=== PATIENT | male | born 1955 | race Caucasian/White ===

== ENCOUNTER → 2016-07-13 | Outpatient (CLI) | payer OTHER ==
[2016-03-10 08:00] VITALS: BP 129/85
[~2016-07-13] MED LIST: ACET500T33 PO; ASPI-482 PO; ASPI81TA44 PO; BYSTOLIC10 MG PO; CHOL10003 PO; GLUC1TAB33 PO; HYDR50TA6 PO; LISI30TA4 PO; LISI40TA PO; MULT-460 PO; OMEP20TA PO; SIMV20TA3 PO; TADA5TAB PO; TEST30SO TD; TEST75GE2 TD
== END | disposition home or self-care (01) ==
LOC: LAB 14:22
PROVIDERS: ATTEND Internal Medicine
DX: R73.03 Prediabetes (principal)
CPT/HCPCS: 36415; 82947; 83036

== ENCOUNTER → 2016-10-28 | Outpatient (CLI) | payer OTHER ==
[2016-03-10 08:00] VITALS: BP 129/85
[~2016-10-28] MED LIST changes: -OMEP20TA PO; +OMEP20TA8 PO
[2016-10-28 12:51] LABS: CHOLESTEROL/HDL RATIO 2.7
[2016-10-28 19:13] LABS: TESTOSTERONE TOTAL 280 ng/dL (348-1197)
== END | disposition home or self-care (01) ==
LOC: LAB 12:02
PROVIDERS: ATTEND Internal Medicine
DX: R89.9 Unspecified abnormal finding in specimens from other organs, systems and tissues (principal)
CPT/HCPCS: 36415; 80061; 84403

== ENCOUNTER → 2017-03-04 | Outpatient (CLI) | payer OTHER ==
[2016-03-10 08:00] VITALS: BP 129/85
[2017-03-04 10:20] LABS: HEMATOCRIT 46.7 % (39.0-53.0)
[2017-03-04 11:24] LABS: ALBUMIN 4.2 g/dL (3.4-5.0); ALBUMIN/GLOBULIN RATIO 1.1 (1.0-1.7); CALCIUM 9.9 mg/dL (8.5-10.1); CHOLESTEROL/HDL RATIO 3.2; CREATININE 0.7 mg/dL (0.7-1.3); GFR 114.6; POTASSIUM 4.5 mmol/L (3.5-5.1); TOTAL BILIRUBIN 0.9 mg/dL (0.2-1.0); TOTAL PROTEIN 8.2 g/dL (6.4-8.2)
[2017-03-04 18:14] LABS: TESTOSTERONE TOTAL 286 ng/dL (264-916)
== END | disposition home or self-care (01) ==
LOC: LAB 09:58
PROVIDERS: ATTEND Internal Medicine
DX: Z12.5 Encounter for screening for malignant neoplasm of prostate (principal); Z00.01 Encounter for general adult medical examination with abnormal findings; I10 Essential (primary) hypertension; E29.1 Testicular hypofunction; E78.5 Hyperlipidemia, unspecified
CPT/HCPCS: 36415; 80053; 80061; 84403; 85014; 85018; G0103

== ENCOUNTER → 2017-10-18 | Outpatient (CLI) | payer OTHER ==
[2017-10-18 13:07] LABS: ADD MAN DIFF? NO
[2017-10-18 13:27] LABS: BASO % 1 % (0-3); EOS # 0.1 x10^3/uL (0.0-0.7); EOS % 1 % (0-3); HEMATOCRIT 46.7 % (39.0-53.0); LYMPH # 1.7 x10^3/uL (1.0-4.8); LYMPH % 19 % (24-48); MEAN CORPUSCULAR HEMOGLOBIN 32 pg (25-35); MEAN CORPUSCULAR HGB CONC 34 g/dL (31-37); MEAN CORPUSCULAR VOLUME 94 fL (79-100); MONO % 11 % (0-9); NEUT # 6.2 x10^3uL (1.8-7.7); NEUT % 68 % (31-73); PLATELET COUNT 209 x10^3/uL (140-400); RED BLOOD COUNT 4.96 x10^6/uL (4.30-5.70); RED CELL DISTRIBUTION WIDTH 13.2 % (11.5-14.5)
[2017-10-18 14:50] LABS: SEDIMENTATION RATE 1 (0-15)
== END | disposition home or self-care (01) ==
LOC: MRI 12:44
DX: G44.89 Other headache syndrome (principal)
CPT/HCPCS: 36415; 70551; 85025; 85651

== ENCOUNTER → 2017-11-01 | Outpatient (CLI) | payer OTHER ==
[2017-11-01 11:38] LABS: ALBUMIN 4.4 g/dL (3.4-5.0); ALBUMIN/GLOBULIN RATIO 1.1 (1.0-1.7); ALK PHOS 58 U/L (46-116); ALT (SGPT) 51 U/L (16-63); ANION GAP 6 (6-14); AST (SGOT) 28 U/L (15-37); BLOOD UREA NITROGEN 22 mg/dL (8-26); BUN/CREATININE RATIO 24 (6-20); CALCIUM 9.2 mg/dL (8.5-10.1); CARBON DIOXIDE 30 mmol/L (21-32); CHLORIDE 102 mmol/L (98-107); CREATININE 0.9 mg/dL (0.7-1.3); GFR 85.8; GLUCOSE 107 mg/dL (70-99); POTASSIUM 4.8 mmol/L (3.5-5.1); SODIUM 138 mmol/L (136-145); TOTAL BILIRUBIN 0.5 mg/dL (0.2-1.0); TOTAL PROTEIN 8.4 g/dL (6.4-8.2)
[2017-11-01 12:23] LABS: SEDIMENTATION RATE 2 (0-15)
== END | disposition home or self-care (01) ==
LOC: LAB 10:57
DX: G44.001 Cluster headache syndrome, unspecified, intractable (principal); I10 Essential (primary) hypertension; E78.5 Hyperlipidemia, unspecified; E78.00 Pure hypercholesterolemia, unspecified
CPT/HCPCS: 36415; 80053; 85651; 86141

== ENCOUNTER → 2017-11-02 | Outpatient (CLI) | payer OTHER ==
[2017-11-02] MEDS: GADOBUTROL 10 MMOL/10 ML VIAL IV (12:31)
== END | disposition home or self-care (01) ==
LOC: KCIC MRI 11:27
DX: H57.12 Ocular pain, left eye (principal); I10 Essential (primary) hypertension; E78.5 Hyperlipidemia, unspecified; E78.00 Pure hypercholesterolemia, unspecified
CPT/HCPCS: 70543; 70544; 70552; A9585

== ENCOUNTER → 2017-11-02 | Outpatient (CLI) | payer OTHER | END | disposition home or self-care (01) | LOC: EKG 10:33 | DX: G44.009 Cluster headache syndrome, unspecified, not intractable (principal) | CPT/HCPCS: 93005 ==

== ENCOUNTER → 2018-02-06 | Outpatient (CLI) | payer OTHER ==
[2017-12-18 10:31] VITALS: BP 150/90
[~2018-02-06] MED LIST changes: -ASPI81TA44 PO; +ASPI81TA59 PO; +BENZ-8 PO; +CARB200T PO; +CEFD300C PO; +CYCL10TA2 PO; +DIAZ2TAB3 PO; +HYDR-2758 PO; +LEVO500T59 PO; +LISI-130 PO; -LISI40TA PO; +METO-269 PO; +Pantoprazole PO; +SPIR25TA5 PO
[2018-02-06 12:35] LABS: BILIRUBIN,URINE NEGATIVE (NEG); CLARITY,URINE CLEAR; COLOR,URINE YELLOW; NITRITE,URINE NEGATIVE (NEG); PH,URINE 5.5; PROTEIN,URINE NEGATIVE (NEG-TRACE); UROBILINOGEN,URINE 0.2 mg/dL (0.2 mg/dL)
[2018-02-06 12:40] LABS: BASO % 1 % (0-3); EOS # 0.1 x10^3/uL (0.0-0.7); EOS % 1 % (0-3); HEMATOCRIT 48.2 % (39.0-53.0); HEMOGLOBIN 16.7 g/dL (13.0-17.5); LYMPH # 1.1 x10^3/uL (1.0-4.8); LYMPH % 15 % (24-48); MEAN CORPUSCULAR HEMOGLOBIN 33 pg (25-35); MEAN CORPUSCULAR HGB CONC 35 g/dL (31-37); MEAN CORPUSCULAR VOLUME 95 fL (79-100); MONO # 0.8 x10^3/uL (0.0-1.1); MONO % 10 % (0-9); NEUT # 5.4 x10^3uL (1.8-7.7); NEUT % 73 % (31-73); PLATELET COUNT 201 x10^3/uL (140-400); RED BLOOD COUNT 5.08 x10^6/uL (4.30-5.70); RED CELL DISTRIBUTION WIDTH 13.6 % (11.5-14.5); WHITE BLOOD COUNT 7.4 x10^3/uL (4.0-11.0)
[2018-02-06 12:51] LABS: BACTERIA,URINE FEW /HPF (0-FEW); RBC,URINE RARE /HPF (0-2); WBC,URINE RARE /HPF (0-4)
[2018-02-06 13:01] LABS: ALBUMIN 4.4 g/dL (3.4-5.0); ALBUMIN/GLOBULIN RATIO 1.1 (1.0-1.7); CALCIUM 9.6 mg/dL (8.5-10.1); CREATININE 0.9 mg/dL (0.7-1.3); GFR 85.5; POTASSIUM 4.2 mmol/L (3.5-5.1); TOTAL BILIRUBIN 0.5 mg/dL (0.2-1.0); TOTAL PROTEIN 8.5 g/dL (6.4-8.2)
[2018-02-06 13:33] LABS: CHOLESTEROL/HDL RATIO 3.2
== END | disposition home or self-care (01) ==
LOC: LAB 12:17
PROVIDERS: ATTEND Family Medicine
DX: Z12.5 Encounter for screening for malignant neoplasm of prostate (principal); Z12.11 Encounter for screening for malignant neoplasm of colon; I10 Essential (primary) hypertension; E29.1 Testicular hypofunction
CPT/HCPCS: 80053; 80061; 81001; 85025; G0103

== ENCOUNTER → 2018-03-08 | Day surgery (SDC) | payer OTHER ==
[~2018-03-08] MED LIST changes: +BALANCED SALT IRRIG OPHTH SOLN 15 ML BOTTLE. ONE; +BECL10.62 IH; +CHLO25TA PO; +CHONDROIT-SOD-HYALURONATE KIT. ONE; +CHONDROITIN-SOD-HYALURONATE 0.5 ML DISP.SYRIN. ONE; +CIPROFLOXACIN 0.3% OPHTH SOLUTION 5ML BOTTLE. OS ONE; +FLUT9.9S NS; +HYDROmorphone 2 MG/ML VIAL IV PRN; +IV RINGERS,LACTATED 1000ML 1,000 ML IV SCH; +LIDOCAINE 1% PF 2 ML VIAL. ID PRN; +LIDOCAINE 1% PF 2 ML VIAL. ONE; +LIDOCAINE 2% JELLY 6ML IN APPLICATOR. MM SCH; +LIDOCAINE 2% JELLY 6ML IN APPLICATOR. ONE; +MIDAZOLAM HCL/PF 2 MG/2 ML VIAL. ONE; +MORPHINE SULFATE 2 MG/ML VIAL. IV PRN; +NEO/POLYMYX/DEXAMETH OPHTH OINTMENT 3.5GM TUBE. ONE; +OMEP20CA9 PO; +PROCHLORPERAZINE 10 MG/2 ML VIAL. IV PRN; +fentaNYL PF VIAL 100 MCG/2 ML VIAL IV PRN
[2018-03-08] MEDS: PROPARACAINE 0.5% OPHTH SOLUTION 15ML BOTTLE. OS ONE ×2 (10:46→12:17)
[2018-03-08] MEDS: PHENYLEPHRINE 10% OPHTH SOLUTION 5ML BOTTLE. OS SCH ×3 (10:47→10:59)
[2018-03-08] MEDS: CYCLOPENTOLATE 1% OPTH SOLUTION 2ML BOTTLE. OS SCH ×3 (10:48→10:59)
--- NOTE | 2018-03-08 12:53 | OP ---
DATE OF SURGERY: 03/08/2018 PREOPERATIVE DIAGNOSIS: Cataract of the left eye, status post pars plana vitrectomy earlier in the year. SURGEON: Kimberlyn Cortez MD ANESTHESIA: Topical with monitored anesthesia care. DESCRIPTION OF PROCEDURE: The left eye was prepped with Betadine in the usual sterile fashion and draped. A paracentesis was performed followed by instillation of preservative free lidocaine and phenylephrine admixed with balanced salt solution. Viscoelastic was injected in the anterior chamber and a temporal clear corneal incision was made. A capsulorrhexis was performed followed by hydrodissection and prolapse of the nucleus to the pupillary plane. Viscoelastic was injected both anterior and posterior to the nucleus and it was evacuated with the phacoemulsification handpiece. The I and A handpiece was used to remove the remainder of the cortex. Viscoelastic was injected in the anterior chamber and an [place] model [id number] with a power of 17.5 diopters was placed into the capsular bag. Balanced salt solution was used to hydrate the corneal wounds and the viscoelastic evacuated with the I and A handpiece. Once no leak was noted, Maxitrol was placed on the eye and the eye shielded and the patient was sent to the recovery room uneventfully. KIMBERLYN CORTEZ MD DR: SARIKA/abdoulaye JOB#: [id number] / [id number]
[2018-03-08 12:56] VITALS: BP 118/72
== END | disposition home or self-care (01) ==
LOC: SURG 10:11
PROVIDERS: ATTEND Ophthalmology
DX: H26.8 Other specified cataract (principal); I10 Essential (primary) hypertension; E78.5 Hyperlipidemia, unspecified; Z90.49 Acquired absence of other specified parts of digestive tract; Z98.890 Other specified postprocedural states; Z72.89 Other problems related to lifestyle; Z79.899 Other long term (current) drug therapy; Z96.652 Presence of left artificial knee joint; Z88.8 Allergy status to other drugs, medicaments and biological substances
CPT/HCPCS: 66984; C1780; J0171; J0690; J1580; J2250

== ENCOUNTER → 2018-06-02 | Outpatient (CLI) | payer OTHER ==
[2018-03-08 12:56] VITALS: BP 118/72
[~2018-06-02] MED LIST changes: -BALANCED SALT IRRIG OPHTH SOLN 15 ML BOTTLE. ONE; -CHLO25TA PO; +CHLO25TA10 PO; -CHONDROIT-SOD-HYALURONATE KIT. ONE; -CHONDROITIN-SOD-HYALURONATE 0.5 ML DISP.SYRIN. ONE; -CIPROFLOXACIN 0.3% OPHTH SOLUTION 5ML BOTTLE. OS ONE; -HYDR-2758 PO; +HYDR-2761 PO; -HYDROmorphone 2 MG/ML VIAL IV PRN; -IV RINGERS,LACTATED 1000ML 1,000 ML IV SCH; -LIDOCAINE 1% PF 2 ML VIAL. ID PRN; -LIDOCAINE 1% PF 2 ML VIAL. ONE; -LIDOCAINE 2% JELLY 6ML IN APPLICATOR. MM SCH; -LIDOCAINE 2% JELLY 6ML IN APPLICATOR. ONE; -MIDAZOLAM HCL/PF 2 MG/2 ML VIAL. ONE; -MORPHINE SULFATE 2 MG/ML VIAL. IV PRN; -NEO/POLYMYX/DEXAMETH OPHTH OINTMENT 3.5GM TUBE. ONE; -PROCHLORPERAZINE 10 MG/2 ML VIAL. IV PRN; -fentaNYL PF VIAL 100 MCG/2 ML VIAL IV PRN
--- NOTE | 2018-06-02 09:46 | KCIC ---
MR of the right shoulder HISTORY: Right shoulder pain after recent fall. TECHNIQUE: Routine multiplanar sequences are obtained. FINDINGS: The acromioclavicular joint is mildly degenerative. Full-thickness tear of the supraspinatus tendon measures 3.5 cm AP diameter with 3 cm retraction. High-grade subscapularis tendon tear. Mild volume loss and fatty infiltration of rotator cuff muscles. There is acute edema and evidence of partial intramuscular tearing of the subscapularis muscle. Trace glenohumeral joint effusion. No advanced articular cartilage loss. There is mild blunting of the superior labrum compatible with degeneration or tear. Biceps tendon is not visualized. No bone lesion or acute fracture. There is also intramuscular edema or strain of the deltoid muscle and the partially visualized lateral pectoralis major muscle. IMPRESSION: 1. Moderate sized retracted rotator cuff tear at the supraspinatus tendon. High-grade subscapularis tendon tear. 2. Sprain/partial intramuscular tearing of the subscapularis muscle, with lower grade strain of the deltoid and lateral pectoralis major muscles. 3. Nonvisualized biceps tendon likely due to a tear. Blunting of the superior labrum, also compatible with tear or degeneration. Electronically signed by: Lon Garcias MD (06/02/2018 9:41 AM) [facility]
--- NOTE | 2018-06-02 09:57 | KCIC ---
MR of the left shoulder HISTORY: Left shoulder pain for several months. Limited range of motion. TECHNIQUE: Routine multiplanar sequences are obtained. FINDINGS: Acromioclavicular joint is mildly degenerative, but no significant undersurface osteophytes or mass effect. Full-thickness rotator cuff tear of the supraspinatus tendon, measures about 3 cm AP diameter by 3 cm retraction. There is tendinosis involving the remaining rotator cuff. Mild partial tearing of subscapularis tendon. Mild rotator cuff muscle atrophy. Small subdeltoid bursal effusion. Mild degenerative changes of the glenohumeral joint. There is a degenerative tear of the posterosuperior labrum. Mild heterogeneous signal within the posterior through inferior labrum. The biceps tendon is not well seen. No bone lesion or acute fracture. There is mild cystic change at the greater tuberosity. IMPRESSION: 1. Moderate full-thickness retracted rotator cuff tear of the supraspinatus tendon. Partial subscapularis tendon tear. 2. Posterosuperior labral tear, with degeneration or tearing through the inferior labrum as well. 3. Nonvisualized biceps tendon, presumed tear. Electronically signed by: Lon Garcias MD (06/02/2018 9:52 AM) [facility]
== END | disposition home or self-care (01) ==
LOC: KCIC MRI 07:46
PROVIDERS: ATTEND Orthopaedic Surgery Sports Medicine
DX: S46.811A Strain of other muscles, fascia and tendons at shoulder and upper arm level, right arm, initial encounter (principal); M75.101 Unspecified rotator cuff tear or rupture of right shoulder, not specified as traumatic; M62.512 Muscle wasting and atrophy, not elsewhere classified, left shoulder; M75.102 Unspecified rotator cuff tear or rupture of left shoulder, not specified as traumatic; M62.89 Other specified disorders of muscle; X58.XXXA Exposure to other specified factors, initial encounter; Y93.89 Activity, other specified; Y92.89 Other specified places as the place of occurrence of the external cause; Y99.8 Other external cause status
CPT/HCPCS: 73221

== ENCOUNTER → 2018-06-06 | Outpatient (CLI) | payer OTHER ==
[2018-03-08 12:56] VITALS: BP 118/72
[2018-06-06 14:30] LABS: ALBUMIN 4.2 g/dL (3.4-5.0); ALBUMIN/GLOBULIN RATIO 1.1 (1.0-1.7); CALCIUM 9.4 mg/dL (8.5-10.1); CREATININE 0.9 mg/dL (0.7-1.3); GFR 85.5; POTASSIUM 4.3 mmol/L (3.5-5.1); TOTAL BILIRUBIN 0.6 mg/dL (0.2-1.0); TOTAL PROTEIN 8.2 g/dL (6.4-8.2)
[2018-06-08 17:13] LABS: ALBUM 4.4 g/dL (2.9-4.4); ALPHA 1 0.1 g/dL (0.0-0.4); ALPHA 2 0.9 g/dL (0.4-1.0); BETA 1.1 g/dL (0.7-1.3); GAMMA 0.9 g/dL (0.4-1.8); PROTEIN TOTAL 7.4 g/dL (6.0-8.5); SPEP AG RATIO 1.5 (0.7-1.7)
== END | disposition home or self-care (01) ==
LOC: LAB 13:46
PROVIDERS: ATTEND Family Medicine
DX: R77.8 Other specified abnormalities of plasma proteins (principal)
CPT/HCPCS: 36415; 80053; 84165

== ENCOUNTER → 2019-01-09 | Outpatient (CLI) | payer OTHER ==
[2018-03-08 12:56] VITALS: BP 118/72
[~2019-01-09] MED LIST changes: +OMEP20CA10 PO; -OMEP20CA9 PO
[2019-01-09 10:16] LABS: BASO # 0.1 x10^3/uL (0.0-0.2); BASO % 1 % (0-3); EOS # 0.3 x10^3/uL (0.0-0.7); EOS % 3 % (0-3); HEMATOCRIT 52.9 % (39.0-53.0); HEMOGLOBIN 18.3 g/dL (13.0-17.5); LYMPH # 1.4 x10^3/uL (1.0-4.8); LYMPH % 16 % (24-48); MEAN CORPUSCULAR HEMOGLOBIN 33 pg (25-35); MEAN CORPUSCULAR HGB CONC 35 g/dL (31-37); MEAN CORPUSCULAR VOLUME 94 fL (79-100); MONO # 0.9 x10^3/uL (0.0-1.1); MONO % 11 % (0-9); NEUT # 5.9 x10^3/uL (1.8-7.7); NEUT % 69 % (31-73); PLATELET COUNT 215 x10^3/uL (140-400); RED BLOOD COUNT 5.64 x10^6/uL (4.30-5.70); RED CELL DISTRIBUTION WIDTH 13.6 % (11.5-14.5); WHITE BLOOD COUNT 8.6 x10^3/uL (4.0-11.0)
[2019-01-09 10:17] LABS: BILIRUBIN,URINE NEGATIVE (NEG); CLARITY,URINE CLEAR; COLOR,URINE YELLOW; NITRITE,URINE NEGATIVE (NEG); PH,URINE 7.5; PROTEIN,URINE NEGATIVE (NEG-TRACE)
[2019-01-09 10:24] LABS: ALBUMIN 4.3 g/dL (3.4-5.0); ALBUMIN/GLOBULIN RATIO 1.1 (1.0-1.7); CALCIUM 9.8 mg/dL (8.5-10.1); GFR 75.7; POTASSIUM 4.2 mmol/L (3.5-5.1); TOTAL BILIRUBIN 0.8 mg/dL (0.2-1.0); TOTAL PROTEIN 8.1 g/dL (6.4-8.2)
[2019-01-09 10:26] LABS: CHOLESTEROL/HDL RATIO 4.3
[2019-01-09 10:27] LABS: RBC,URINE OCC /HPF (0-2)
[2019-01-09 10:28] LABS: BACTERIA,URINE FEW /HPF (0-FEW); SQUAMOUS EPITHELIAL CELL,UR OCC /LPF
[2019-01-09 19:09] LABS: THYROXINE 8.3 ug/dL (4.5-12.0)
[2019-01-12 09:12] LABS: TESTOSTERONE FREE 18.27 ng/dL (5.00-21.00)
== END | disposition home or self-care (01) ==
LOC: LAB 09:20
PROVIDERS: ATTEND Family Medicine
DX: E29.1 Testicular hypofunction (principal); I10 Essential (primary) hypertension; Z79.899 Other long term (current) drug therapy
CPT/HCPCS: 36415; 80053; 80061; 81001; 84153; 84402; 84403; 84436; 84443; 85025; 87086; G0103

== ENCOUNTER → 2020-01-28 | Outpatient (CLI) | payer OTHER ==
[2018-03-08 12:56] VITALS: BP 118/72
[~2020-01-28] MED LIST changes: -OMEP20CA10 PO; +OMEP20CA16 PO; +SIMV20TA18 PO; -SIMV20TA3 PO
[2020-01-28 09:42] LABS: BASO # 0.1 x10^3/uL (0.0-0.2); BASO % 1 % (0-3); BILIRUBIN,URINE NEGATIVE (NEG); CLARITY,URINE CLEAR; COLOR,URINE YELLOW; EOS # 0.2 x10^3/uL (0.0-0.7); EOS % 2 % (0-3); HEMATOCRIT 49.7 % (39.0-53.0); HEMOGLOBIN 17.3 g/dL (13.0-17.5); LYMPH # 1.8 x10^3/uL (1.0-4.8); LYMPH % 17 % (24-48); MEAN CORPUSCULAR HEMOGLOBIN 33 pg (25-35); MEAN CORPUSCULAR HGB CONC 35 g/dL (31-37); MEAN CORPUSCULAR VOLUME 95 fL (79-100); MONO # 1.1 x10^3/uL (0.0-1.1); MONO % 10 % (0-9); NEUT # 7.5 x10^3/uL (1.8-7.7); NEUT % 70 % (31-73); NITRITE,URINE NEGATIVE (NEG); PH,URINE 5.5 (<5.0-8.0); PLATELET COUNT 204 x10^3/uL (140-400); PROTEIN,URINE NEGATIVE (NEG-TRACE); RED BLOOD COUNT 5.26 x10^6/uL (4.30-5.70); RED CELL DISTRIBUTION WIDTH 13.4 % (11.5-14.5); WHITE BLOOD COUNT 10.7 x10^3/uL (4.0-11.0)
[2020-01-28 10:01] LABS: BACTERIA,URINE FEW /HPF (0-FEW); RBC,URINE 0 /HPF (0-2); WBC,URINE OCC /HPF (0-4)
[2020-01-28 10:03] LABS: CALCIUM 9.3 mg/dL (8.5-10.1); CHOLESTEROL/HDL RATIO 3.5; CREATININE 0.9 mg/dL (0.7-1.3); TOTAL BILIRUBIN 0.8 mg/dL (0.2-1.0); TOTAL PROTEIN 8.1 g/dL (6.4-8.2)
[2020-01-28 13:54] LABS: FECAL OB PT NEGATIVE (NEG)
[2020-01-28 22:08] LABS: CREAT RD UR 173.1 mg/dL (Not Estab.); MICROALB RD UR 34.4 ug/mL (Not Estab.)
== END | disposition home or self-care (01) ==
LOC: LAB 07:29
PROVIDERS: ATTEND Family Medicine
DX: Z12.5 Encounter for screening for malignant neoplasm of prostate (principal); I13.0 Hypertensive heart and chronic kidney disease with heart failure and stage 1 through stage 4 chronic kidney disease, or unspecified chronic kidney disease; N18.2 Chronic kidney disease, stage 2 (mild); I50.9 Heart failure, unspecified; E78.5 Hyperlipidemia, unspecified
CPT/HCPCS: 80053; 80061; 81001; 82043; 82274; 82570; 84410; 85025; G0103

== ENCOUNTER → 2020-03-10 | Outpatient (CLI) | payer OTHER ==
[2018-03-08 12:56] VITALS: BP 118/72
--- NOTE | 2020-03-10 11:30 | KCIC ---
EXAM: MRI RIGHT SHOULDER WITHOUT CONTRAST INDICATION: Fell in May 2018, history of rotator cuff tear treated nonoperatively. Evaluate degree of retraction and muscle atrophy for potential rotator cuff repair planning. COMPARISON: MRI right shoulder 06/02/2018 TECHNIQUE: Multiplanar, multisequence imaging of the right shoulder Without contrast. FINDINGS: ROTATOR CUFF: There is a chronic near-complete tear of the supraspinatus tendon with retraction of fibers approximately 3.3 cm, to the medial aspect of the humeral head. A few of the very far posterior fibers may be intact. There is mild fatty atrophy of the supraspinatus muscle. There is a chronic, complete tear of the subscapularis tendon retracted medial to the glenoid by approximately 2 mm cranially and 1.3 cm caudally there is severe fatty atrophy of the subscapularis muscle. Probable partial thickness articular sided tearing of the anterior infraspinatus tendon. No infraspinatus or teres minor muscle atrophy. LABRUM: There is diffuse degenerative tearing of the labrum, greatest superiorly and anteriorly.. BICEPS TENDON: The intra-articular biceps tendon is not visualized, likely, completely torn. ACROMIOCLAVICULAR JOINT: There is mild acromioclavicular degenerative joint disease with small amount of fluid in the joint. GLENOHUMERAL JOINT: There is worsened, deep partial and full-thickness cartilage loss along the anterior superior glenoid and inferomedial humeral head, and more superficial cartilage loss along the rest of the humeral head. Alignment is normal. Small inferior osteophyte noted. There are cystic changes and marrow edema at the greater tuberosity. OTHER: Small joint effusion communicating with the subacromial-subdeltoid bursa.. IMPRESSION: 1. Chronic near complete tear of supraspinatus tendon with retraction of fibers to the medial aspect of the humeral head. Mild supraspinatus muscle atrophy. 2. Chronic complete tear of the subscapularis tendon with fibers retracted medial to the glenoid. Severe subscapularis muscle atrophy. 3. Partial thickness articular sided tear of the anterior infraspinatus tendon. No infraspinatus muscle atrophy. 4. Nonvisualized biceps tendon, likely chronic complete tear. 5. Worsened, mild to moderate glenohumeral degenerative joint disease. Electronically signed by: Kathleen Devine MD (03/10/2020 11:26 AM) [place] [id number]
== END ==
LOC: KCIC MRI 07:48
PROVIDERS: ATTEND Orthopaedic Surgery
DX: M75.121 Complete rotator cuff tear or rupture of right shoulder, not specified as traumatic (principal); M19.011 Primary osteoarthritis, right shoulder; M25.411 Effusion, right shoulder; M62.511 Muscle wasting and atrophy, not elsewhere classified, right shoulder
CPT/HCPCS: 73221

== ENCOUNTER → 2020-04-07 | Outpatient (CLI) | payer OTHER ==
[2018-03-08 12:56] VITALS: BP 118/72
[~2020-04-07] MED LIST changes: +ASCO500C PO; +DIAZEPAM10 MG PO; +DICL100G54 TP; +ICOS1CAP PO; +NAPR220C4 PO; +OXYC1TAB19 PO; +SILD100T PO; +TEST5GEL TD; +ZINC50TA39 PO
[2020-04-07 15:18] LABS: BASO % 0 % (0-3); EOS # 0.1 x10^3/uL (0.0-0.7); EOS % 1 % (0-3); HEMATOCRIT 47.8 % (39.0-53.0); HEMOGLOBIN 16.5 g/dL (13.0-17.5); LYMPH # 2.1 x10^3/uL (1.0-4.8); LYMPH % 15 % (24-48); MEAN CORPUSCULAR HEMOGLOBIN 32 pg (25-35); MEAN CORPUSCULAR HGB CONC 34 g/dL (31-37); MEAN CORPUSCULAR VOLUME 94 fL (79-100); MONO # 1.3 x10^3/uL (0.0-1.1); MONO % 9 % (0-9); NEUT # 11.1 x10^3/uL (1.8-7.7); NEUT % 76 % (31-73); PLATELET COUNT 238 x10^3/uL (140-400); RED BLOOD COUNT 5.11 x10^6/uL (4.30-5.70); RED CELL DISTRIBUTION WIDTH 12.9 % (11.5-14.5); WHITE BLOOD COUNT 14.6 x10^3/uL (4.0-11.0)
[2020-04-07 15:31] LABS: ALBUMIN 3.9 g/dL (3.4-5.0); CALCIUM 9.3 mg/dL (8.5-10.1); CREATININE 0.8 mg/dL (0.7-1.3); GFR 97.3
[2020-04-07 15:35] LABS: PROTHROMBIN TIME PATIENT 13.5 SEC (11.7-14.0)
--- NOTE | 2020-04-07 15:51 | EKG ---
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
--- NOTE | 2020-04-07 16:34 | RAD ---
EXAM: CHEST 2 VIEWS. HISTORY: Preoperative risk factors. COMPARISON: 12/17/2017. FINDINGS: Frontal and lateral views of the chest are obtained. The inspiration is small. The right hemidiaphragm is moderately elevated. There is mild bibasilar ate lectasis. There is no pneumothorax or pleural effusion. The heart is not enlarged. Cholecystectomy cl ips are noted. There are atherosclerotic calcifications of the aorta. IMPRESSION: 1. Small inspiration with right hemidiaphragmatic elevation. No confluent infiltrates. Electronically signed by: Jolie Chavira MD (04/07/2020 4:31 PM) [facility]
[2020-04-08 03:11] LABS: HEMOGLOBIN A1C 6.2 % (4.8-5.6)
== END ==
LOC: SURGPAT 14:21
PROVIDERS: ATTEND Orthopaedic Surgery
DX: Z01.812 Encounter for preprocedural laboratory examination (principal); M75.120 Complete rotator cuff tear or rupture of unspecified shoulder, not specified as traumatic; I70.0 Atherosclerosis of aorta; J98.11 Atelectasis; Z90.49 Acquired absence of other specified parts of digestive tract
CPT/HCPCS: 36415; 71046; 80048; 82040; 82306; 83036; 85025; 85610; 85730; 86140; 87641; 93005

== ENCOUNTER → 2020-04-10 | Outpatient (CLI) | payer OTHER ==
[2018-03-08 12:56] VITALS: BP 118/72
--- NOTE | 2020-04-10 11:50 | KCIC ---
MRI of the lumbar spine without contrast 04/10/2020 CLINICAL HISTORY: Low back pain with left leg weakness. TECHNIQUE: Unenhanced T1-weighted and T2-weighted sagittal and axial and inversion recovery sagittal images of the lumbar spine were obtained. FINDINGS: Very mild S-shaped curvature of the thoracolumbar spine is seen. Degenerative signal change s are seen involving all of the disks of the lumbar spine. Degenerative signal changes are seen withi n the marrow surrounding these discs. A 1 cm hemangioma is seen involving the T12 vertebral body. A 1 .3 cm hemangioma is seen involving the L3 vertebral body. The conus medullaris is normal morphology, position, and signal characteristics. At the T12-L1 disc space there is a mild generalized disc bulge. Superimposed on this disc bulge is a right paracentral focal disc protrusion. This measure 3 mm in AP diameter. Degenerative changes are seen involving the facet joints bilaterally. There are small facet joint effusions bilaterally. These findings when combined do not result in significant central spinal canal or neural foraminal stenosi s. At the L1-2 disc space there is a mild to moderate generalized disc bulge. Superimposed on this disc bulge is a left paracentral focal disc protrusion. This measures 5 mm in AP diameter. Degenerative ch anges are seen involving the facet joints bilaterally. There is mild ligamentum flavum hypertrophy bi laterally. There are small facet joint effusions bilaterally. These findings when combined result in mild left greater than right central spinal canal stenosis. No neural foraminal stenosis is seen. At the L2-3 disc space there is a mild to moderate generalized disc bulge. Degenerative changes are s een involving the facet joints bilaterally. There is moderate ligamentum flavum hypertrophy bilateral ly. These findings when combined result in mild to moderate central spinal canal stenosis. Mild to mo derate left greater the right neural foraminal stenosis is seen. At the L4-5 disc space there is a mild to moderate generalized disc bulge. This is eccentric to the r ight. Degenerative changes are seen involving the facet joints bilaterally. There is moderate ligamen dada flavum hypertrophy bilaterally. These findings when combined result in mild central spinal canal stenosis. Mild right neural foraminal stenosis is seen. The left neural foramen is patent. At the L5-S1 disc space there is a mild generalized disc bulge. Degenerative changes are seen involvi ng the facet joints bilaterally. There are small facet joint effusions bilaterally. These findings wh en combined do not result in significant central spinal canal stenosis. No neural foraminal stenosis is seen. IMPRESSION: The changes of degenerative disc disease are seen involving the lumbar spine. These findings result i n mild left greater than right central spinal canal stenosis at L1-2, mild to moderate central spinal canal stenosis at L2-3 and mild central spinal canal stenosis at L4-5. Mild to moderate left greater the right neural foraminal stenosis is seen at L2-3. Mild right neural foraminal stenosis is seen at L4-5. Electronically signed by: Ha Viveros MD (04/10/2020 11:48 AM) [place] [id number]
== END ==
LOC: KCIC MRI 09:19
PROVIDERS: ATTEND Family Medicine
DX: M51.36 Other intervertebral disc degeneration, lumbar region (principal); M48.061 Spinal stenosis, lumbar region without neurogenic claudication; R29.898 Other symptoms and signs involving the musculoskeletal system; M79.605 Pain in left leg
CPT/HCPCS: 72148

== ENCOUNTER → 2020-04-11 | Outpatient (CLI) | payer OTHER ==
[2018-03-08 12:56] VITALS: BP 118/72
[2020-04-11 10:54] LABS: BASO # 0.1 x10^3/uL (0.0-0.2); BASO % 0 % (0-3); EOS # 0.1 x10^3/uL (0.0-0.7); EOS % 1 % (0-3); HEMATOCRIT 52.4 % (39.0-53.0); LYMPH # 2.1 x10^3/uL (1.0-4.8); LYMPH % 16 % (24-48); MEAN CORPUSCULAR HEMOGLOBIN 32 pg (25-35); MEAN CORPUSCULAR HGB CONC 34 g/dL (31-37); MEAN CORPUSCULAR VOLUME 94 fL (79-100); MONO # 1.1 x10^3/uL (0.0-1.1); MONO % 8 % (0-9); NEUT # 9.8 x10^3/uL (1.8-7.7); NEUT % 75 % (31-73); PLATELET COUNT 223 x10^3/uL (140-400); RED BLOOD COUNT 5.55 x10^6/uL (4.30-5.70); RED CELL DISTRIBUTION WIDTH 13.1 % (11.5-14.5)
[2020-04-11 12:38] LABS: % ATYL 2 % (0-0); % LYMPHS 17 % (24-48); % MONOS 6 % (0-10); % SEGS 75 % (35-66)
[2020-04-11 12:40] LABS: PLT ESTIMATE ADEQUATE (ADEQUATE)
[2020-04-11 14:50] LABS: WHITE BLOOD COUNT 13.2 x10^3/uL (4.0-11.0)
== END ==
LOC: LAB 10:27
PROVIDERS: ATTEND Family Medicine
DX: D72.819 Decreased white blood cell count, unspecified (principal)
CPT/HCPCS: 36415; 85007; 85025

== ENCOUNTER → 2020-04-15 | Outpatient (CLI) | payer OTHER ==
[2018-03-08 12:56] VITALS: BP 118/72
[~2020-04-15] MED LIST changes: +DULO30CA2 PO; +IOHEXOL 180 MG/ML 10 ML VIAL. ONE; +methylPREDNISolone ACETATE 40 MG/ML VIAL. ONE; +methylPREDNISolone ACETATE 80 MG/ML VIAL. ONE
--- NOTE | 2020-04-15 15:57 | PDOC1 ---
INITIAL PAIN CONSULT DATE OF SERVICE: DOS: DATE: 04/15/20 TIME: 15:49 CHIEF COMPLAINT: Chief Complaint: Low back and left lower extremity pain HISTORY OF PRESENT ILLNESS: 65-year-old male presents history of pain low back left lower extremity for about 3 to 4 weeks now not result of any specific injury or accident that he is aware of but is been getting worse with time patient reports the pain is constant sharp in the back radiating to the left lower extremity mainly in the left groin as well as anterior thigh medial lower leg knee and lower medial calf. Patient reports is very sensitive at times even to the point where he was unable to wear pants comfortably and sheets at night were severely painful touching the skin. This increased activity has improved but still significant pain in the leg and back itself. Patient did have an MRI scan lumbar spine show degenerative changes with mild left greater than right central spinal canal stenosis L1-2 mild to moderate central spinal canal stenosis L2-3 mild central spinal canal stenosis at L4-5. Patient rates his disability rating 0-10 10 being the worst, as an 8 with family home responsibilities and life support activities 9 with recreation 5 with social activity and sexual behavior 7 with occupation and self-care behaviors. Patient did have trigger point injection with his primary care physician which helped temporarily but the pain is returned significantly in the back and he did not help the leg much with pain. Patient is taking Percocet as well as Valium at night which does decrease the pain and allows him to sleep. Patient reports no overt motor loss but significant fatigability with the left leg with walking standing better with sitting or laying down at occasionally does awaken him from sleep about twice a night most nights even with Valium and Percocet. Reports no bowel or bladder incontinence no other concerns. PAST MEDICAL HISTORY: PMH: Hypertension, arthritis, hyperlipidemia, gastroesophageal reflux, torn rotator cuff right shoulder, pending surgery in 2 weeks PREVIOUS SURGERIES: Past Surgical Hx: Laparoscopic cholecystectomy, inguinal herniorrhaphy, left cataract extraction, left vitreous repair, right knee scope, nasal septum repair CURRENT MEDICATIONS: Current Meds: Active Scripts Medications Dose Route/Sig Max Daily Dose Days Date Category Dose Instructions Cymbalta (Duloxetine Hcl) 30 Mg Capsule.dr 1 Cap PO DAILY 04/15/20 Reported Voltaren (Diclofenac Sodium) 100 Gm Gel..gram. 1 Gm TP QID PRN 30 04/07/20 Reported apply to affected area(s) Diazepam 10 Mg Tablet 10 Mg PO QID PRN 04/07/20 Reported Percocet 7.5-325 Mg Tablet (Oxycodone/Acetaminophen) 1 Each Tablet 1 Tab PO PRN Q6HRS PRN 04/07/20 Reported Aleve (Naproxen Sodium) 220 Mg Capsule 220 Mg PO BID 04/07/20 Reported Zinc 50 Mg Tablet 1 Tab PO DAILY 30 04/07/20 Reported Vitamin C (Ascorbic Acid) 500 Mg Capsule.er 1,000 Mg PO DAILY 04/07/20 Reported Vascepa (Icosapent Ethyl) 1 Gm Capsule 2 Cap PO BID 30 04/07/20 Reported Viagra (Sildenafil Citrate) 100 Mg Tablet 1 Tab PO PRN DAILY PRN 04/07/20 Reported Androgel (Testosterone) 5 Gm Gel.packet 30 Mg TD DAILY 04/07/20 Reported Chlorthalidone (Chlorthalidone) 25 Mg Tablet 1 Tab PO DAILY 03/07/18 Reported Omeprazole 20 Mg Capsule.dr 1 Cap PO DAILY 03/07/18 Reported Qvar Redihaler (Beclomethasone Dipropionate) 10.6 Gm Hfa.aeroba 10.6 Gm IH BID 03/07/18 Reported Flonase Allergy Relief (Fluticasone Propionate) 9.9 Ml [place].susp 2 Sprays NS DAILY 03/07/18 Reported Vitamin D3 (Cholecalciferol (Vitamin D3)) 1,000 Unit Tablet 5,000 Unit PO DAILY 03/09/16 Reported Aspir 81 (Aspirin) 81 Mg Tablet.dr 81 Mg PO 03/09/16 Reported Lisinopril 40 Mg Tablet 1 Tab PO DAILY 12/10/14 Reported Glucosamine Chondroitin Tab (Gluc Stafford/Chondro Stafford A/Vit C/Mn) 1 Each Tablet 1 Each PO BID 12/10/14 Reported Multiple Vitamin (Multivitamin With Minerals) 1 Each Tablet 1 Each PO DAILY 01/16/14 Reported Simvastatin 20 Mg Tablet 20 Mg PO HS 01/16/14 Reported Bystolic (Nebivolol) 10 Mg Tablet 10 Mg PO DAILY 01/16/14 Reported ALLERGIES; Allergies: Coded Allergies: metoclopramide (Verified Adverse Reaction, Intermediate, anxiety, 03/07/18) FAMILY HISTORY: Family Hx: COPD, and heart disease SOCIAL HISTORY: Social Hx: Patient drinks about 4 drinks a week alcoholic beverages does not smoke not use any illegal illicit recreational drugs is lives with his spouse, also lives with his daughter and grandchildren, and is currently retired. REVIEW OF SYSTEMS: ROS: Positive for those items mentioned in history of present illness, all systems are reviewed, otherwise negative, is complete full and well-documented on patient's chart. PHYSICAL EXAM: VS: Blood pressure is 123/90 pulse 79 respirations 16 temperature is 98.0 F height is 6 foot weight is 230 pounds PE: PHYSICAL EXAMINATION: GENERAL: The patient is awake, alert, oriented, appropriate, very pleasant demeanor HEENT: Shows normocephalic, atraumatic. Extraocular movements are intact and symmetrical. Oral cavity: Mucous membranes moist and pink. Dentition is intact. NECK: Shows anterior throat supple without palpable lymphadenopathy noted. Swallow reflex symmetrical. CHEST: Shows normal on inspection. Breath sounds are clear bilaterally, no rales rhonchi wheezes auscultated. HEART: Shows S1, S2 clear. No murmurs auscultated. ABDOMEN: Soft, nontender, nondistended, obese. No palpable organomegaly is noted. No rebound or guarding demonstrated. BACK: Shows spine grossly in the midline. Normal-appearing cervical lordotic curvature. There is slightly increased thoracic kyphosis, some minor flattening of the lumbar lordotic curvature. Lumbar paraspinous muscles show symmetrical on inspection, on palpation shows some moderate tenderness diffusely throughout the upper, middle and lower distribution of the paraspinous muscles bilaterally and also into the lower thoracic paraspinous musculature, firm and tender, but without specific trigger points, without radiation of pain. The patient has good rotational motion of the lumbar spine, both laterally as well as extension and flexion without significant difficulty. No tenderness over the spinous processes, sacrum or sacroiliac regions. EXTREMITIES: Lower extremities show deep tendon reflexes 2+ in the patellar and tendo calcaneus tendons. Motor exam is 5 on a scale of 5 with right dorsiflexion, extension, quadriceps and hamstring flexion and 4/5 on the left. Peripheral pulses are 1+ posterior tibial. No peripheral edema is noted bilaterally. Lower extremities are warm and dry to touch, equal in color and appearance. Straight leg raise noted to be negative on the right, left side is positive at about 40 degrees decreased with knee flexion. Gaenslen's and Jaziel's maneuvers are negative bilaterally. The patient is able to stand, stand on his toes without difficulty or loss of balance walks with a slight favoring gait favors the left lower extremity mildly but not use any assistive devices to ambulate such as canes or walkers. SKIN: Shows warm and dry, good turgor. No edema. No sores, rashes or bruising throughout. IMPRESSION: Impression: 65-year-old male with approximate 3-week history increasing pain low back left lower extremity and radicular fashion MRI scan lumbar spine as noted Hypertension Arthritis Gastroesophageal reflux Torn rotator cuff right, pending surgery Plan: Options were discussed with the patient and patient's spouse who accompanied him his visit today. Including conservative medical management is physical therapies interventional techniques. Patient would like to pursue interventional techniques. We discussed a lumbar epidural steroid injection using description as well as anatomical model to describe the procedure. Risks were discussed including but not limited to: Bleeding, infection, possibility of epidural hematoma and subsequent neurological compromise, dural puncture, hea daches, spinal cord and/or nerve damage, side effects of steroid medication, and poor results regarding pain control. Patient understands wished to proceed. Patient return to clinic in approximately 2 weeks for follow-up, was counseled as return appointment activity level and side effects to be aware of. Procedure is lumbar epidural steroid injection under local anesthetic using sterile prep and drape at the L3-4 level using C-arm fluoroscopic guidance in both AP and lateral views medications injected is 120 mg Depo-Medrol + 10 mL preservative-free normal saline and 2 mL contrast- condition at discharge is stable patient tolerated procedure well had no complications. LING NANCE MD Apr 15, 2020 15:57
== END | disposition home or self-care (01) ==
LOC: PNCL 13:04
PROVIDERS: ATTEND Anesthesiology
DX: M54.5 Low back pain (principal); M79.605 Pain in left leg; I10 Essential (primary) hypertension; E78.00 Pure hypercholesterolemia, unspecified; K21.9 Gastro-esophageal reflux disease without esophagitis; M19.90 Unspecified osteoarthritis, unspecified site; Z90.49 Acquired absence of other specified parts of digestive tract; Z98.890 Other specified postprocedural states; Z72.89 Other problems related to lifestyle; Z79.82 Long term (current) use of aspirin; Z79.899 Other long term (current) drug therapy; Z88.8 Allergy status to other drugs, medicaments and biological substances
CPT/HCPCS: 62323; J1030; J1040; Q9965

== ENCOUNTER → 2020-04-17 | Outpatient (CLI) | payer OTHER ==
[2018-03-08 12:56] VITALS: BP 118/72
[~2020-04-17] MED LIST changes: -IOHEXOL 180 MG/ML 10 ML VIAL. ONE; -methylPREDNISolone ACETATE 40 MG/ML VIAL. ONE; -methylPREDNISolone ACETATE 80 MG/ML VIAL. ONE
--- NOTE | 2020-04-17 15:05 | CARD ---
MR#: [id number] Date of Study: 04/17/2020 Ordering Physician: CLAYTON VILLAGOMEZ, Referring Physician: CLAYTON VILLAGOMEZ Tech: Sruthi Green RDCS APPROVED REPORT EXAM: Two-dimensional and M-mode echocardiogram with Doppler and color Doppler. Other Information Quality : Good INDICATION Pre-Op 2D DIMENSIONS RVDd3.2 (2.9-3.5cm)Left Atrium(2D)3.0 (1.6-4.0cm) IVSd1.0 (0.7-1.1cm)Aortic Root(2D)3.4 (2.0-3.7cm) LVDd4.3 (3.9-5.9cm)LVOT Diameter2.3 (1.8-2.4cm) PWd1.2 (0.7-1.1cm)LVDs2.8 (2.5-4.0cm) FS (%) 30.0 %SV55.3 ml LVEF(%)60.0 (>50%) Aortic Valve AoV Peak Reggie.116.4cm/sAoV VTI19.3cm AO Peak GR.5.4mmHgLVOT Peak Reggie.119.8cm/s AO Mean GR.3mmHgAVA (VMAX)4.16cm2 PASCUAL (VTI)4.80cm2 Mitral Valve MV E Auhoeqef40.0cm/sMV DECEL [id number] MV A Lvumcmni54.2cm/sE/A Ratio0.8 Tricuspid Valve TR P. Xurejblt812nb/sRAP [id number] TR Peak Gr.79lsBzFSOB87tmDh Pulmonary Vein S1 Ndduuehd05.6cm/sD2 Cwtvgckg29.2cm/s LEFT VENTRICLE The left ventricle is normal size. There is mild concentric left ventricular hypertrophy. The left ve ntricular systolic function is normal. The Ejection Fraction is 55-60%. There is normal LV segmental wall motion. Transmitral Doppler flow pattern is Grade I-abnormal relaxation pattern. RIGHT VENTRICLE The right ventricle is normal size. The right ventricular systolic function is normal. ATRIA The left atrium size is normal. The right atrium size is normal. The interatrial septum is intact wit h no evidence for an atrial septal defect or patent foramen ovale as noted on 2-D or Doppler imaging. AORTIC VALVE The aortic valve is calcified but opens well. Doppler and Color Flow revealed no significant aortic r egurgitation. There is no significant aortic valvular stenosis. MITRAL VALVE The mitral valve is calcified but opens well. Mitral annular calcification is mild. There is no evide nce of mitral valve prolapse. There is no mitral valve stenosis. Doppler and Color Flow revealed no m itral valve regurgitation noted. TRICUSPID VALVE The tricuspid valve is normal in structure and function. Doppler and Color Flow revealed trace tricus pid regurgitation. The PA pressure was estimated at 32 mmHg. There is no tricuspid valve stenosis. PULMONIC VALVE The pulmonic valve is not well visualized. Doppler and Color Flow revealed mild pulmonic valvular reg urgitation. There is no pulmonic valvular stenosis. GREAT VESSELS The aortic root is normal in size. The ascending aorta is normal in size. The IVC is normal in size a nd collapses >50% with inspiration. PERICARDIAL EFFUSION There is no evidence of significant pericardial effusion. Critical Notification Critical Value: No <Conclusion> The left ventricular systolic function is normal. The Ejection Fraction is 55-60%. There is normal LV segmental wall motion. Transmitral Doppler flow pattern is Grade I-abnormal relaxation pattern. Trace tricuspid regurgitation. The PA pressure was estimated at 32 mmHg. There is no evidence of significant pericardial effusion. Signed by : Clayton Villagomez, Electronically Approved : 04/17/2020 15:04:39
== END ==
LOC: ECHO 13:24
PROVIDERS: ATTEND Internal Medicine Cardiovascular Disease
DX: Z01.810 Encounter for preprocedural cardiovascular examination (principal); I08.8 Other rheumatic multiple valve diseases
CPT/HCPCS: 93306

== ENCOUNTER → 2020-04-23 | Outpatient (CLI) | payer OTHER ==
[2018-03-08 12:56] VITALS: BP 118/72
== END ==
LOC: LAB 10:23
PROVIDERS: ATTEND Orthopaedic Surgery
DX: Z01.812 Encounter for preprocedural laboratory examination (principal); Z20.828 Contact with and (suspected) exposure to other viral communicable diseases; M75.101 Unspecified rotator cuff tear or rupture of right shoulder, not specified as traumatic
CPT/HCPCS: U0003

== ENCOUNTER 2020-04-29 06:15 | Inpatient (IN) | payer OTHER ==
[2020-04-29] VITALS (8 sets, daily range): BP systolic 89–108; BP diastolic 56–64
[~2020-04-29] VITALS: Ht 182.9 cm; Wt 111.7 kg
[~2020-04-29 06:15] MED LIST changes: +ACETAMINOPHEN 500 MG TABLET PO PRN; +GABAPENTIN 300 MG CAPSULE. PO PRN; +MELOXICAM 7.5 MG TABLET PO PRN; +TRANEXAMIC ACID 1,000 MG in IV NS 50ML -- 1ST BAG INJ ONE
[2020-04-29] MEDS ORDERED: PROPOFOL 10 MG/ML (20ML) VIAL. IV ONE ×2 (06:27→11:40)
[2020-04-29] MEDS ORDERED: KETOROLAC 30 MG/ML VIAL. ONE (06:27)
[2020-04-29] MEDS ORDERED: ONDANSETRON PF 4 MG/2 ML VIAL. ONE ×2 (06:27→11:40)
[2020-04-29] MEDS ORDERED: LIDOCAINE 2% PF 5 ML VIAL. ONE ×2 (06:27→11:40)
[2020-04-29] MEDS ORDERED: DEXAMETHASONE SOD PHOS 4 MG/ML VIAL ONE ×2 (06:27→11:40)
[2020-04-29] MEDS ORDERED: SEVOFLURANE 61 TO 120 MINUTES. IH ONE (06:27)
[2020-04-29] MEDS: IV RINGERS,LACTATED 1000ML 1,000 ML IV SCH ×2 (06:58→10:38)
[2020-04-29] MEDS ORDERED: ONDANSETRON PF 4 MG/2 ML VIAL. IV PRN (07:00)
[2020-04-29] MEDS ORDERED: fentaNYL PF VIAL 100 MCG/2 ML VIAL IV PRN ×2 (07:00)
[2020-04-29] MEDS ORDERED: HYDROmorphone 2 MG/ML VIAL IV PRN ×2 (07:00→10:15)
[2020-04-29] MEDS ORDERED: PROCHLORPERAZINE 10 MG/2 ML VIAL. IV PRN (07:00)
[2020-04-29] MEDS ORDERED: ROPIVacaine 0.5% PF 20 ML VIAL. ONE (07:17)
[2020-04-29] MEDS ORDERED: MIDAZOLAM HCL/PF 2 MG/2 ML VIAL. ONE (07:17)
[2020-04-29] MEDS ORDERED: EPINEPHrine VIAL 30 MG/30 ML VIAL ONE (07:23)
--- NOTE | 2020-04-29 07:51 | HP ---
ADMIT DATE: 04/29/2020 PREOPERATIVE HISTORY AND PHYSICAL CHIEF COMPLAINT: Right shoulder pain and weakness. HISTORY OF PRESENT ILLNESS: The patient continues to have severe right shoulder pain, particularly at night and when he raises his arm up and trying to bring his arm back down from an elevated position if it is unsupported and he has had a rotator cuff tear in the past, treated nonoperatively to date. PAST MEDICAL HISTORY: Significant for hypertension, hypercholesterolemia, reflux disease. PAST SURGICAL HISTORY: Cholecystectomy, inguinal hernia repair, right knee arthroscopy and septum repair in his nose. FAMILY HISTORY: Heart disease in his mother. SOCIAL HISTORY: He is a nonsmoker, occasional social alcohol use and denies substance abuse. He is , accompanied him today. MEDICATIONS: List is reviewed. ALLERGIES: INCLUDE METOCLOPRAMIDE, WHICH MADE HIM A BIT HYPER. REVIEW OF SYSTEMS: He had a recent epidural steroid injection for lumbar radiculopathy in the pain clinic within the past couple of weeks. Other than that, no fever, chills, chest pain, shortness of breath, recent constitutional symptoms. He did have a cardiac catheterization, receiving clearance by Dr. Grant. PHYSICAL EXAMINATION: VITAL SIGNS: Per admission sheet. HEENT: Atraumatic, normocephalic. HEART: Regular rate and rhythm. LUNGS: Clear to auscultation bilaterally. ABDOMEN: Benign. EXTREMITIES: Examination of the right shoulder reveals weakness on resisted abduction and mild pain with resisted external rotation, internal rotation strength is normal. There is no apprehension or instability. No acromioclavicular joint tenderness. Normal examination of the left shoulder, bilateral elbows and wrists. ASSESSMENT: Full-thickness tear, right rotator cuff with retraction and right shoulder pain. TREATMENT PLAN: I had previously gone over with him that he seems to have significant retraction of his rotator cuff tear and superior migration of his humeral head, which would portend for a poor result with rotator cuff repair because of the muscular atrophy noted on MRI. He does want to proceed with surgical evaluation and treatment and I talked about the possibility of potential rotator cuff repair, but the repair would likely be compromised if it has to be repaired under tension, is prone to failure and especially muscular atrophy is a poor prognosticator of functional repair as well. If these concerns along with tissue quality would be likely to compromise a rotator cuff repair, we talked about an alternate procedure of reverse total shoulder arthroplasty and we covered risks, benefits, postoperative course of both procedures, the protection face of a rotator cuff repair and the restrictions and rationale for a reverse shoulder arthroplasty, the possibility of infection, nonhealing instability, nerve or blood vessel damage, medical or other anesthetic complications among others. All his questions were answered. Again, he wants to proceed with surgical evaluation and treatment today with [facility] admission to follow regardless of procedure and he is going to get an interscalene block, which we discussed as well. JESSICA CABEZAS MD DR: KAYLA/abdoulaye JOB#: [id number] / [id number]
[2020-04-29] MEDS ORDERED: TRANEXAMIC ACID 1,000 MG in IV NS 50ML -- 2ND BAG INJ ONE (08:00)
[2020-04-29] MEDS ORDERED: VANCOMYCIN 1 GM VIAL. ONE (09:32)
[2020-04-29] MEDS ORDERED: 0.9 % SODIUM CHLORIDE 10 ML DISP.SYRIN. IV PRN (10:15)
[2020-04-29] MEDS ORDERED: oxyCODONE/APAP 7.5/325 1 TAB TABLET PO PRN (10:15)
[2020-04-29] MEDS ORDERED: CALCIUM CARBONATE 500 MG TAB.CHEW PO PRN (10:15)
[2020-04-29] MEDS ORDERED: traMADol 50 MG TABLET PO PRN ×2 (10:15)
[2020-04-29] MEDS: IV NORMAL SALINE 1000ML BAG 1,000 ML IV SCH (10:15)
[2020-04-29] MEDS ORDERED: HYDROcodone/APAP 10/325 1 TAB TABLET PO PRN (10:15)
[2020-04-29] MEDS ORDERED: PROCHLORPERAZINE 5 MG TABLET. PO PRN (10:15)
[2020-04-29] MEDS ORDERED: DEXTROSE 50% 25 GM / 50ML DISP.SYRIN. IV PRN (10:15)
[2020-04-29] MEDS ORDERED: ACETAMINOPHEN 325 MG TABLET. PO PRN (10:15)
[2020-04-29] MEDS ORDERED: NALOXONE 0.4 MG/ML VIAL. IV PRN (10:15)
[2020-04-29] MEDS ORDERED: ZOLPIDEM 5 MG TABLET. PO PRN (10:15)
[2020-04-29] MEDS ORDERED: oxyCODONE/APAP 5/325 1 TAB TABLET PO PRN (10:15)
[2020-04-29] MEDS ORDERED: MORPHINE SULFATE 2 MG/ML VIAL. ONE (10:43)
[2020-04-29] MEDS: MORPHINE SULFATE 2 MG/ML VIAL. IV PRN ×2 (10:50→11:04)
--- NOTE | 2020-04-29 10:57 | RAD ---
Three-view right shoulder study Clinical indications: Postoperative exam. FINDINGS: A total reverse arthroplasty of the right glenohumeral joint is seen which is normally alig roxanne. No acute fracture or lytic process or AC joint separation is seen. IMPRESSION: Right shoulder arthroplasty. Electronically signed by: Carl Espino MD (04/29/2020 10:54 AM) [id number]
[2020-04-29] MEDS: IV DEXTROSE 5 %-0.45 % NACL 1,000 ML IV SCH ×2 (11:01→20:15)
[2020-04-29] MEDS ORDERED: fentaNYL PF VIAL 250 MCG/5 ML VIAL ONE (11:35)
[2020-04-29] MEDS: SENNOSIDES/DOCUSATE 8.6/50MG TABLET. PO SCH (12:19)
--- NOTE | 2020-04-29 12:35 | NUR ---
received from recovery. He is alert and oriented x4 . he is rating his pain a "7" burning. He feels like his arm is numb but does have motion in his fingers. fingers are warm to touch. at bedside. good pulses bilaterally
--- NOTE | 2020-04-29 15:19 | NUR ---
Report received from Mayda Smith Patient had a Right shoulder scope to evaluate rotator cuff which lead to a right reverse total shoulder arthroplasty. Patient tolerated surgery well. He received a pain block in his right shoulder. Patient is c/o some pain but states it's manageable. Patient had no urine output during or after surgery. Vitals were BP 101/57, HR74, afebrile, and patient had a blood loss of 250 mL
--- NOTE | 2020-04-29 16:07 | PDOC4 ---
Operative Note Operative Note Date of surgery 04/29/2020 Preoperative diagnosis: Large retracted right rotator cuff tear Postoperative diagnosis: Same with poor tissue quality and degeneration of the humeral head and glenoid with significant superior labral degeneration Operative procedure: Right reverse shoulder arthroplasty Surgeon: Eldon Buffing Wheel Raker: Diego Orourke project construction assistant manager Anesthesia: General plus scalene block Estimated blood loss: 150 cc Complications: None Operative indications: Please see my preoperative clinic note for detailed operative indications and note that he continues to have pain with activities and at night and difficulty with strength maneuvers or lifting her arm away from his side. He continues to have clinical findings of weakness and pain and MRI notable for a large retracted rotator cuff tear with significant muscular atrophy. We had talked about possibility of rotator cuff repair and if the tear is irreparable, the alternate plan of reverse shoulder arthroplasty including the possibility of infection nerve or blood vessel damage instability premature wear or loosening medical or other anesthetic complications among others he acknowledges the possible risks and agrees to proceed with surgical evaluation and treatment. Operative text: Patient was identified procedure verified patient placed in the beachchair position on the operating table with the T-Max headrest. After adequate amounts of general anesthesia and a pre-existing scalene block were obtained he was placed in the beachchair position using the T-Max headrest and all bony prominences were well-padded. The right shoulder was prepped and draped in standard sterile fashion and after timeout was performed patient procedure identified and verified a deltopectoral approach was carried out deltoid was elevated and the distal deltoid was bluntly elevated off the humeral insertion to avoid traction injury during the procedure. Clavipectoral fascia was taken down the subscapularis was released as was the superior aspect of the pectoralis, humerus was exposed and reamed to a size 15 mm stem and a 10 degree retroverted cut was carried out and reaming proximally carried out preparation for a Wade 130 mm stem length 15 mm stem diameter. Glenoid was then exposed capsular release was performed. A guidewire was placed in slight declination low centrally in the glenoid and any residual labrum was previously removed and reaming was carried out down to bleeding bone inferiorly sclerotic superior bone was drilled to improve the blood supply and a trabecular metal glenoid baseplate was impacted and screws were placed inferiorly in the scapular spine superiorly to the base of the coracoid with excellent fixation and were locked. 40 mm glenosphere was then impacted to engage the Marc taper and trial fitting carried out with a standard +6 mm offset 40 mm trial liner. Full range of motion excellent stability were obtained and trial components were removed. Irrigation carried out normal saline solution with pulse lavage and a reverse shoulder system 15 mm nonporous humeral stem 130 mm stem length was assembled with a 40 mm +6 offset polyethylene liner and was impacted in proper version with excellent stability reduced and found to have equivalent range of motion and stability. Superior aspect of the pectoralis was repaired and partial subscapularis repair carried out with max braid suture to avoid any excessive tension. The irrigation again carried out with dilute Betadine lavage followed by normal saline solution 1 g vancomycin was placed in the joint closure accomplished with buried Vicryl suture skin closure with subcuticular strata fix Monocryl suture and sterile dressings were applied. Patient was placed in a sling returned to recovery room in stable condition having tolerated the procedure well. Diego lagunas was present for the procedure assisted in the patient positioning prepping draping retraction closure and dressings JESSICA CABEZAS MD Apr 29, 2020 16:07
[2020-04-29] MEDS: FERROUS SULFATE 325 MG TABLET. PO SCH (18:00)
[2020-04-29] MEDS: CELECOXIB 100 MG CAPSULE. PO SCH (20:56)
[2020-04-29] MEDS ORDERED: SIMVASTATIN 20 MG TABLET PO SCH (21:00)
[2020-04-30] MEDS: HYDROcodone/APAP 7.5/325MG 1 TAB TABLET PO PRN ×2 (00:17→06:27)
[2020-04-30] MEDS: IV NORMAL SALINE 1000ML BAG 1,000 ML IV SCH (01:05)
[2020-04-30 03:02] VITALS: BP 114/72
[2020-04-30] MEDS ORDERED: MAGNESIUM HYDROXIDE 2,400 MG/30 ML ORAL.SUSP. PO PRN (06:00)
[2020-04-30] MEDS: IV DEXTROSE 5 %-0.45 % NACL 1,000 ML IV SCH (06:15)
[2020-04-30 06:40] VITALS: BP 120/77
[2020-04-30] MEDS ORDERED: PANTOPRAZOLE 40 MG TABLET.DR. PO SCH (07:30)
[2020-04-30] MEDS: FERROUS SULFATE 325 MG TABLET. PO SCH (08:02)
[2020-04-30] MEDS: SENNOSIDES/DOCUSATE 8.6/50MG TABLET. PO SCH (08:02)
[2020-04-30] MEDS: CELECOXIB 100 MG CAPSULE. PO SCH (08:02)
[2020-04-30] MEDS ORDERED: MULTIVITAMIN with MINERAL TABLET. PO SCH (09:00)
[2020-04-30] MEDS ORDERED: DULoxetine HCL 30 MG CAPSULE.DR PO SCH (09:00)
[2020-04-30 12:15] LABS: HEMATOCRIT 38.8 % (39.0-53.0); HEMOGLOBIN 13.2 g/dL (13.0-17.5)
--- NOTE | 2020-04-30 12:52 | SNU/HH DC ---
DISCHARGE WITH HOME HEALTH DISCHARGE INFORMATION: Discharge Date: Apr 30, 2020 Final Diagnosis: Status post right reverse shoulder arthroplasty Condition on Discharge: Stable CODE STATUS: Code Status: Full HOME HEALTH: Face to Face: I certify this patient is under my care and that I, or a nurse practitioner or physician's assistant operator working with me, had a face to face encounter that meets the physician face to face encounter requirements with this patient on [04/30/20]. Medical Complications: S/P Joint Replacement RN For Eval/Treatment: No Physical Therapy For: Evalulation/Treatment Pt Meets Homebound Status: Limited distance walking POST DISCHARGE ORDERS: Activity Instructions for Disc: Other, see below Weight Bearing Status after Di: Full weight bearing Bathing Instructions: No Tub Bath until see DIET AFTER DISCHARGE: Regular Wound/Incision Care: Ice to area for comfort, Change dressing, Do not change dressing (Maintain dressing unless saturated or leaking) FOLLOW-UP: Follow up with: Dr. Colón 2 weeks postoperatively CERTIFICATION STATEMENT: Certification Statement: Certification Statement: Based on the above finding, I certify that this patient is confined to the home and needs intermittent halfway care, physical therapy and/or speech therapy, or continues to need occupational therapy.~ This patient is under my care, and I have initiated the establishment of the plan of care.~ This patient will be followed by myself or a community physician who will periodically review the plan of care. Home Meds Reported Medications Duloxetine Hcl (CYMBALTA) 30 Mg Capsule.dr, 1 CAP PO DAILY for unk, #30 CAP 5 Refills 04/15/20 Diclofenac Sodium (VOLTAREN) 100 Gm Gel..gram., 1 GM TP QID PRN for PAIN for 30 Days, #1 EACH 0 Refills apply to affected area(s) 04/07/20 Diazepam (DIAZEPAM) 10 Mg Tablet, 10 MG PO QID PRN for ANXIETY / AGITATION, TAB 04/07/20 Oxycodone/Apap 7.5-325 (PERCOCET 7.5-325 MG TABLET ) 1 Each Tablet, 1 TAB PO PRN Q6HRS PRN for PAIN, TAB 0 Refills 04/07/20 Naproxen Sodium (ALEVE) 220 Mg Capsule, 220 MG PO BID for pain, CAP 04/07/20 Zinc (ZINC) 50 Mg Tablet, 1 TAB PO DAILY for supplement for 30 Days, #30 TAB 0 Refills 04/07/20 Ascorbic Acid (VITAMIN C) 500 Mg Capsule.er, 1000 MG PO DAILY for vitamin, CAP.SR 04/07/20 Icosapent Ethyl (VASCEPA) 1 Gm Capsule, 2 CAP PO BID for htn for 30 Days, #120 CAP 0 Refills 04/07/20 Sildenafil Citrate (VIAGRA) 100 Mg Tablet, 1 TAB PO PRN DAILY PRN for PER PROTOCOL, #6 TAB 11 Refills 04/07/20 Testosterone (ANDROGEL) 5 Gm Gel.packet, 30 MG TD DAILY for hormone, PKT 04/07/20 Chlorthalidone (CHLORTHALIDONE ) 25 Mg Tablet, 1 TAB PO DAILY for swelling, #30 TAB 5 Refills 03/07/18 Omeprazole (OMEPRAZOLE) 20 Mg Capsule.dr, 1 CAP PO DAILY for gerd, #30 CAP 5 Refills 03/07/18 Beclomethasone Dipropionate (Qvar Redihaler) 10.6 Gm Hfa.aeroba, 10.6 GM IH BID for wheeze 03/07/18 Fluticasone Propionate (Flonase Allergy Relief) 9.9 Ml [place].susp, 2 SPRAYS NS DAILY for allergy, BOTTLE 03/07/18 Cholecalciferol (Vitamin D3) (VITAMIN D3) 1,000 Unit Tablet, 5000 UNIT PO DAILY for vitamin 03/09/16 Aspirin (ASPIR 81) 81 Mg Tablet.dr, 81 MG PO, TAB 03/09/16 Lisinopril (LISINOPRIL) 40 Mg Tablet, 1 TAB PO DAILY, #30 TAB 5 Refills 12/10/14 Gluc Stafford/Chondro Stafford A/Vit C/Mn (GLUCOSAMINE CHONDROITIN TAB) 1 Each Tablet, 1 EACH PO BID 12/10/14 Multivitamin With Minerals (MULTIPLE VITAMIN) 1 Each Tablet, 1 EACH PO DAILY 01/16/14 Simvastatin (SIMVASTATIN) 20 Mg Tablet, 20 MG PO HS for FOR CHOLESTEROL, #30 TAB 0 Refills 01/16/14 Nebivolol Hcl (BYSTOLIC) 10 Mg Tablet, 10 MG PO DAILY 01/16/14 JESSICA COLÓN MD Apr 30, 2020 12:52
[2020-04-30] MEDS ORDERED: BISACODYL 10 MG SUPP.RECT. PR PRN (16:00)
--- NOTE | 2020-05-01 07:00 | DS ---
DATE OF DISCHARGE: 04/30/2020 ORTHOPEDIC DISCHARGE SUMMARY PRINCIPAL DIAGNOSIS: Right rotator cuff arthropathy. PROCEDURE: Right reverse shoulder arthroplasty. DISPOSITION: Home with home health. DISPOSITION MEDICATIONS: Percocet 7.5/325 one p.o. q. 4 hours p.r.n. pain. Resume preoperative medications. ACTIVITY: Weightbearing as tolerated, fine motor use allowed, maintain reverse total shoulder arthroplasty precautions. No reaching the arm back around the midline of the body. BRIEF DESCRIPTION OF HOSPITAL COURSE: The patient underwent an uncomplicated reverse shoulder arthroplasty on the right for irreparable rotator cuff tear and severe labral degeneration and moderate glenohumeral degenerative change. He had excellent pain relief from the interscalene block and initially had mild pain with its resolution and then a bit more severe, initially took hydrocodone and preferred oxycodone. He did well with rudimentary physical therapy for the right arm and got up and around well in terms of ambulation and transfers safely, remained medically stable throughout the hospital stay and was discharged home in stable condition. JESSICA CABEZAS MD DR: KAYLA/abdoulaye JOB#: [id number] / [id number]
--- NOTE | 2020-05-02 18:48 | PATHOLOGY ---
[facility] Accession Number: [id number] . 01 Material submitted: . shoulder - RIGHT SHOULDER BONE. Modifiers: right . 01 Clinical history: . RIGHT SHOULDER PAIN,R SHOULDER ARTHROSCOPY . 02 Diagnosis: Segment of bone and articular cartilage, right reverse total shoulder arthroplasty: - Degenerative arthritis. (JPM:wilman; 05/02/2020) QMS 05/02/2020 1121 Local . 02 Electronically signed: . Harjinder Hendrickson MD, Pathologist NPI- [id number] . 01 Gross description: . The specimen is received in formalin, labeled "Maged, Harjinder, R shoulder bone" and consists of a humeral head measuring 4.6 x 4.6 x 1.5 cm. The articular surface is smooth linn to roughened. A entry level sales representative section is submitted in A1 following decalcification. (SDY; 04/30/2020) SYU/SYU 04/30/2020 1645 Local . 02 Pathologist provided ICD-10: M19.011 . 02 CPT . 546561, [id number] Specimen Comment: A courtesy copy of this report has been sent to [phone] Specimen Comment: Report sent to Performed at: 01 [facility] [address], [place] [id number] MD Yuriy Parra MD Phone: [phone] Performed at: 02 [facility] [address], [place] [id number] MD Harjinder Hendrickson MD Phone: [phone]
== END 2020-04-30 16:20 | disposition home or self-care (01) | DRG 483 ==
LOC: OPSVCIP 06:15 → EDSTATUS 07:30 → 4 SOUTHEST 11:35
PROVIDERS: ADMIT Orthopaedic Surgery; ATTEND Orthopaedic Surgery
PROC: 0RRJ00Z Replacement of Right Shoulder Joint with Reverse Ball and Socket Synthetic Substitute, Open Approach (ICD-10-PCS; principal; 2020-04-29 07:30)
DX: M75.101 Unspecified rotator cuff tear or rupture of right shoulder, not specified as traumatic (principal); E78.00 Pure hypercholesterolemia, unspecified; K21.9 Gastro-esophageal reflux disease without esophagitis; I10 Essential (primary) hypertension; Z82.49 Family history of ischemic heart disease and other diseases of the circulatory system; Z88.8 Allergy status to other drugs, medicaments and biological substances; Z90.49 Acquired absence of other specified parts of digestive tract
CPT/HCPCS: 36415; 73030; 85014; 85018; 86850; 86900; 86901; A4565; C1713; C1776; J0171; J0690; J1100; J1885; J2250; J2270; J2405; J2704; J2795; J3010; J3370; J3490; J7030; J7042; J7120; 97110-GP; 97116-GP; 97535-GO; C1769; G0378

== ENCOUNTER → 2020-07-01 | Outpatient (CLI) | payer OTHER ==
[~2020-07-01] MED LIST changes: -ACETAMINOPHEN 500 MG TABLET PO PRN; -GABAPENTIN 300 MG CAPSULE. PO PRN; -HYDR50TA6 PO; +HYDR50TA9 PO; -MELOXICAM 7.5 MG TABLET PO PRN; -TRANEXAMIC ACID 1,000 MG in IV NS 50ML -- 1ST BAG INJ ONE
== END ==
LOC: LAB 08:45
PROVIDERS: ATTEND Psychiatry & Neurology Neurology with Special Qualifications in Child Neurology
DX: G25.81 Restless legs syndrome (principal)
CPT/HCPCS: 36415; 82728; 83540; 83550

== ENCOUNTER → 2021-01-29 | Outpatient (CLI) | payer OTHER ==
[~2021-01-29] MED LIST changes: +CYCL10TA19 PO; -CYCL10TA2 PO
[2021-01-29 08:14] LABS: BASO # 0.1 x10^3/uL (0.0-0.2); BASO % 1 % (0-3); EOS # 0.3 x10^3/uL (0.0-0.7); EOS % 3 % (0-3); HEMATOCRIT 39.8 % (39.0-53.0); HEMOGLOBIN 13.3 g/dL (13.0-17.5); LYMPH # 1.5 x10^3/uL (1.0-4.8); LYMPH % 19 % (24-48); MEAN CORPUSCULAR HEMOGLOBIN 32 pg (25-35); MEAN CORPUSCULAR HGB CONC 34 g/dL (31-37); MEAN CORPUSCULAR VOLUME 95 fL (79-100); MONO # 0.9 x10^3/uL (0.0-1.1); MONO % 12 % (0-9); NEUT % 65 % (31-73); PLATELET COUNT 212 x10^3/uL (140-400); RED BLOOD COUNT 4.19 x10^6/uL (4.30-5.70); RED CELL DISTRIBUTION WIDTH 13.6 % (11.5-14.5); WHITE BLOOD COUNT 7.7 x10^3/uL (4.0-11.0)
[2021-01-29 08:43] LABS: BILIRUBIN,URINE NEGATIVE (NEG); CLARITY,URINE CLEAR; COLOR,URINE YELLOW; NITRITE,URINE NEGATIVE (NEG); PH,URINE 6.5 (<5.0-8.0); PROTEIN,URINE NEGATIVE (NEG-TRACE)
[2021-01-29 09:07] LABS: ALBUMIN 3.9 g/dL (3.4-5.0); ALBUMIN/GLOBULIN RATIO 1.1 (1.0-1.7); CALCIUM 9.1 mg/dL (8.5-10.1); CREATININE 0.9 mg/dL (0.7-1.3); GFR 84.7; POTASSIUM 4.4 mmol/L (3.5-5.1); TOTAL BILIRUBIN 0.6 mg/dL (0.2-1.0); TOTAL PROTEIN 7.5 g/dL (6.4-8.2)
[2021-01-29 09:11] LABS: CHOLESTEROL/HDL RATIO 4.4
[2021-01-29 09:14] LABS: RBC,URINE RARE /HPF (0-2); WBC,URINE RARE /HPF (0-4)
[2021-01-29 09:15] LABS: BACTERIA,URINE 0 /HPF (0-FEW)
== END ==
LOC: LAB 07:50
PROVIDERS: ATTEND Family Medicine
DX: I13.0 Hypertensive heart and chronic kidney disease with heart failure and stage 1 through stage 4 chronic kidney disease, or unspecified chronic kidney disease (principal); N18.9 Chronic kidney disease, unspecified; I50.9 Heart failure, unspecified; D72.819 Decreased white blood cell count, unspecified; R35.1 Nocturia; E29.1 Testicular hypofunction
CPT/HCPCS: 36415; 80053; 80061; 81001; 84153; 84410; 85025; G0103

== ENCOUNTER → 2021-06-26 | Outpatient (CLI) | payer OTHER ==
[2021-06-26 12:18] LABS: BASO % 1 % (0-3); EOS % 1 % (0-3); HEMATOCRIT 44.6 % (39.0-53.0); HEMOGLOBIN 14.9 g/dL (13.0-17.5); LYMPH # 1.5 x10^3/uL (1.0-4.8); LYMPH % 18 % (24-48); MEAN CORPUSCULAR HEMOGLOBIN 31 pg (25-35); MEAN CORPUSCULAR HGB CONC 33 g/dL (31-37); MEAN CORPUSCULAR VOLUME 92 fL (79-100); MONO # 0.8 x10^3/uL (0.0-1.1); MONO % 10 % (0-9); NEUT % 71 % (31-73); PLATELET COUNT 230 x10^3/uL (140-400); RED BLOOD COUNT 4.83 x10^6/uL (4.30-5.70); WHITE BLOOD COUNT 8.5 x10^3/uL (4.0-11.0)
[2021-06-26 12:52] LABS: ALBUMIN 4.3 g/dL (3.4-5.0); ALBUMIN/GLOBULIN RATIO 1.3 (1.0-1.7); CALCIUM 9.2 mg/dL (8.5-10.1); POTASSIUM 4.3 mmol/L (3.5-5.1); TOTAL BILIRUBIN 0.9 mg/dL (0.2-1.0); TOTAL PROTEIN 7.7 g/dL (6.4-8.2)
[2021-06-27 13:12] LABS: FREE PSA/PSA RATIO 22.2 % (.); PSA FREE 0.2 ng/mL; PSA TOTAL 0.9 ng/mL (0.0-4.0)
== END ==
LOC: LAB 11:38
PROVIDERS: ATTEND Family Medicine
DX: I13.0 Hypertensive heart and chronic kidney disease with heart failure and stage 1 through stage 4 chronic kidney disease, or unspecified chronic kidney disease (principal); I50.9 Heart failure, unspecified; N18.9 Chronic kidney disease, unspecified; E29.1 Testicular hypofunction
CPT/HCPCS: 36415; 80053; 84153; 84154; 84410; 85025

== ENCOUNTER → 2021-09-17 | Outpatient (CLI) | payer OTHER ==
[~2021-09-17] MED LIST changes: -OMEP20TA8 PO; +OMEP20TA91 PO
--- NOTE | 2021-09-22 17:07 | PATHOLOGY ---
[facility] Accession Number: [id number] . 01 Material submitted: . scalp - LT OCCIPITAL SCALP BX . 01 Clinician provided ICD-10: C44.42 . 01 Clinical history: . L OCCIPITAL SCALP EXCISION BX PROVEN SCC CHECK MARGINS . 02 Diagnosis: Skin and subcutaneous tissue, left occipital scalp biopsy: - Actinic keratosis; no evidence of squamous cell carcinoma. (JPM:[facility]; 09/22/2021) QMS 09/22/2021 0928 Local . 02 Electronically signed: . Harjinder Hendrickson MD, Pathologist NPI- [id number] . 01 Gross description: . The specimen is received in formalin, labeled "Harjinder Lynne, left occipital scalp". Received is an ellipse of skin measuring 1.8 x 1.0 x 0.3 cm in greatest dimensions. The epidermal surface displays a well-defined, slightly depressed and light linn lesion measuring 0.3 x 0.3 cm, which is 0.2 cm from the closest skin margin. The surgical margin is inked. The specimen is sectioned into eight pieces and entirely submitted in cassettes A1 and A2, with the bisected tips placed in cassette A2. ([facility]; 09/18/2021) QAC/QAC 09/18/2021 0940 Local . 02 Pathologist provided ICD-10: L57.0 . 02 CPT . 919613 Specimen Comment: A courtesy copy of this report has been sent to [phone] Specimen Comment: [phone] Specimen Comment: Report sent to / DR MCCORD Performed at: [address], [place], [place] [id number] MD Yuriy Parra MD Phone: [phone] Performed at: 02 [facility] [address] [place], [place] [id number] MD Harjinder Hendrickson MD Phone: [phone]
== END ==
LOC: LAB 14:06
PROVIDERS: ATTEND Dermatology
DX: C44.42 Squamous cell carcinoma of skin of scalp and neck (principal)
CPT/HCPCS: 88305